=== PATIENT | female | born 1960 | race African-American/Black ===

== ENCOUNTER 2017-03-16 07:08 | Inpatient (IN) | payer OTHER ==
--- NOTE | 2017-03-15 11:06 | HP ---
Satellite [facility] - Chief Complaint Chief Complaint: right hip pain - Past Medical History Allergies/Adverse Reactions: Allergies Allergy/AdvReac Type Severity Reaction Status Date / Time No Known Allergies Allergy Verified 03/12/17 13:58 - Current Medications Current Medications: Home Medications Medication Instructions Recorded Acetaminophen [Tylenol -] 1,000 mg PO TID 03/12/17 Albuterol Sulfate Inhaler - 1 - 2 inh PO BID PRN 03/12/17 [Ventolin Hfa Inhaler -] Aripiprazole [Abilify -] 7 mg PO HS 03/12/17 Gabapentin 100 mg PO BID 03/12/17 Metoprolol Tartrate 50 mg PO HS 03/12/17 Omeprazole 40 mg PO HS 03/12/17 Saline Sensitive Eyes 1 drop OU BID 03/12/17 Simvastatin [Zocor -] 20 mg PO HS 03/12/17 Satellite Physical Exam - Physical Examination General Appearance: Well Nourished, Well Developed, Alert & Oriented x3 ENT: Clear Lung: Normal air movement Heart: Regular rate & rhythm Extremities: Other (right hip- + ttp, decr rom with IR and ER, nvi xrays show severe hip djd) Neurological: Intact, Alert, Oriented Satellite Impression/Plan - Impression/Plan Impression: right hip djd Operative Procedure: right corey thr Date to be Performed: 03/16/17
[~2017-03-16 07:08] MED LIST: VANCOMYCIN 1 GRAM (PRE-DOCKED) 1,000 MG/250 ML BAG IVPB ONE; ceFAZolin SODIUM 1 GM VIAL IVPB ONE
[2017-03-16] MEDS ORDERED: VANCOMYCIN 1,000 MG VIAL (RESTRICTED TO ID ONLY) ONE (07:36)
[2017-03-16] MEDS ORDERED: ceFAZolin SODIUM 1 GM VIAL ONE (07:36)
[2017-03-16] MEDS ORDERED: GABAPENTIN 300 MG CAPSULE (FP) PO ONE (07:39)
[2017-03-16] MEDS ORDERED: TRANEXAMIC ACID 1000 MG/10 ML VIAL IVPUSH ONE (07:39)
[2017-03-16] MEDS ORDERED: CELECOXIB 200 MG CAPSULE PO ONE (07:39)
[2017-03-16] MEDS ORDERED: oxyCODONE HCL 10 MG SUSTAINED ACTING TABLET PO ONE (07:39)
[2017-03-16] MEDS ORDERED: CEFAZOLIN 2 GM in DEXTROSE 5%-WATER - 50 ML IVPB ONE (07:39)
[2017-03-16 08:34] VITALS: BMI 34.5
[2017-03-16] MEDS ORDERED: ceFAZolin SODIUM 1 GM VIAL IVPB ONE ×2 (10:02→10:50)
[2017-03-16] MEDS ORDERED: VANCOMYCIN 1 GRAM (PRE-DOCKED) 1,000 MG/250 ML BAG IVPB ONE (10:59)
[2017-03-16] MEDS ORDERED: MAGNESIUM HYDROX 2400MG/30ML ORAL SUSPENSION 30 ML CUP PO PRN (11:23)
[2017-03-16] MEDS ORDERED: ONDANSETRON 4 MG/2 ML VIAL IVPUSH PRN ×2 (11:23→12:28)
[2017-03-16] MEDS ORDERED: MAG HYDROX/AL HYDROX/SIMETH 30 ML UNIT-DOSE CUP PO PRN (11:23)
[2017-03-16] MEDS ORDERED: ALBUTEROL SO4 18 GM HFA INHALER IH PRN (11:24)
--- NOTE | 2017-03-16 11:27 | OP ---
Operative Note - Note: Operative Date: 03/16/17 (arm[place]) Pre-Operative Diagnosis: right hip djd Operation: right corey thr Post-Operative Diagnosis: Same as Pre-op Surgeon: Waqar Madison Check Processing Clerk: Cirilo Arnold Anesthesiologist/[employer] SALESPERSON: Levar Molina Anesthesia: Spinal, Local Specimens Removed: femoral head Estimated Blood Loss (mls): 150 Operative Report Dictated: Yes
[2017-03-16] MEDS ORDERED: LACTATED RINGERS SOLUTION 1,000 ML IV SCH (11:30)
[2017-03-16] MEDS ORDERED: PROMETHAZINE HCL 25 MG/1 ML VIAL IVPUSH PRN (12:28)
[2017-03-16] MEDS ORDERED: oxyCODONE HCL 5 MG TABLET PO PRN (12:28)
[2017-03-16] MEDS: oxyCODONE HCL 5 MG TABLET PO PRN ×2 (14:00→18:18)
[2017-03-16 17:55] LABS: HIV 1 & 2 AB NEGATIVE; HIV 1 AGp24 NEGATIVE
[2017-03-16] MEDS: CEFAZOLIN 2 GM/D5W 50 ML IVPB SCH (18:18)
[2017-03-16] MEDS ORDERED: PT OWN MED DRAWER 7, Y5N ONE (21:01)
[2017-03-16] MEDS ORDERED: DULoxetine HCL 60 MG CAPSULE.DR PO SCH (22:00)
[2017-03-16] MEDS ORDERED: PATIENT'S OWN MEDICATION (NON-FORMULARY) (Simvastatin 20 MG) PO SCH (22:00)
[2017-03-16] MEDS ORDERED: ARIPiprazole 5 MG TABLET (FP) PO SCH (22:00)
[2017-03-16] MEDS: DULoxetine HCL 30 MG CAPSULE.DR (FP) PO SCH (22:11)
[2017-03-16] MEDS: ATORVASTATIN CA 10 MG TABLET (FP) PO SCH (22:12)
[2017-03-16] MEDS: METOPROLOL TARTRATE 50 MG TABLET (FP) PO SCH (22:12)
[2017-03-16] MEDS: SENNOSIDES/DOCUSATE COMBO (SENNA PLUS) TABLET (UD) PO SCH (22:12)
[2017-03-16] MEDS: ARIPIPRAZOLE 5 MG, ARIPIPRAZOLE 2 MG PO SCH (22:13)
[2017-03-17] MEDS: oxyCODONE HCL 5 MG TABLET PO PRN ×6 (01:23→21:13)
[2017-03-17] MEDS: CEFAZOLIN 2 GM/D5W 50 ML IVPB SCH (01:24)
[2017-03-17] MEDS: ASPIRIN 325 MG TABLET PO SCH (08:19)
[2017-03-17 08:22] LABS: MCH 31.2 pg (25.7-33.7); MCHC 33.6 g/dl (32.0-36.0); MEAN CELL VOLUME 92.9 fl (80-96); MEAN PLT VOLUME 9.7 fl (7.5-11.1); PLATELET COUNT 265 K/MM3 (134-434); RDW 13.4 % (11.6-15.6); WHITE BLOOD COUNT 15.4 K/mm3 (4.0-10.8)
--- NOTE | 2017-03-17 08:36 | PN ---
Progress Note (short form) - Note Progress Note: Ortho Pt seen and examined s/p right corey thr pod #1 Selected Entries 03/17/17 04:58 Temperature 98.0 F Pulse Rate 82 Respiratory 18 Rate Blood Pressure 128/64 Laboratory Tests 03/17/17 07:00 WBC 15.4 H Hgb 12.5 Hct 37.1 Plt Count 265 dressing c/d/i,calf soft ,nt nvi a/p PT hip precautions dvt ppx pain control d/c home tomorrow if stable
[2017-03-17] MEDS: PANTOPRAZOLE 40 MG TABLET (FP) PO SCH (09:22)
[2017-03-17] MEDS: SENNOSIDES/DOCUSATE COMBO (SENNA PLUS) TABLET (UD) PO SCH ×2 (09:22→21:10)
[2017-03-17] MEDS: MULTIVITAMINS (DAILY MVI) TABLET (FP) PO SCH (09:22)
--- NOTE | 2017-03-17 09:35 | PN ---
Progress Note (short form) - Note Progress Note: 56F POD1 s/p R THR under spinal anesthetic with PNB. Pt doing well, states that pain is well controlled. Pt does not report any anesthetic complications. Sensory and motor function intact in bilateral lower extremities. Will add gabapentin as per pt request.
[2017-03-17] MEDS: GABAPENTIN 300 MG CAPSULE (FP) PO SCH ×2 (10:00→21:10)
[2017-03-17] MEDS ORDERED: PT OWN MED DRAWER 7, Y5N ONE (21:03)
[2017-03-17] MEDS: ARIPIPRAZOLE 5 MG, ARIPIPRAZOLE 2 MG PO SCH (21:08)
[2017-03-17] MEDS: METOPROLOL TARTRATE 50 MG TABLET (FP) PO SCH (21:10)
[2017-03-17] MEDS: ATORVASTATIN CA 10 MG TABLET (FP) PO SCH (21:10)
[2017-03-17] MEDS: DULoxetine HCL 30 MG CAPSULE.DR (FP) PO SCH (21:10)
[2017-03-18] MEDS: oxyCODONE HCL 5 MG TABLET PO PRN ×2 (05:11→11:14)
[2017-03-18 06:15] VITALS: BP 104/60; PULSE 92; TEMP 99.9
[2017-03-18 07:58] LABS: MCH 30.9 pg (25.7-33.7); MCHC 33.6 g/dl (32.0-36.0); MEAN PLT VOLUME 9.2 fl (7.5-11.1); PLATELET COUNT 226 K/MM3 (134-434); RDW 13.6 % (11.6-15.6); WHITE BLOOD COUNT 12.8 K/mm3 (4.0-10.8)
--- NOTE | 2017-03-18 08:23 | PN ---
Progress Note (short form) - Note Progress Note: Ortho Pt seen and examined s/p right corey thr pod #2 Selected Entries 03/18/17 06:00 Temperature 99.9 F H Pulse Rate 92 H Respiratory 18 Rate Blood Pressure 104/60 Laboratory Tests 03/18/17 07:00 WBC 12.8 H Hgb 12.1 Hct 36.1 Plt Count 226 dressing c/d/i,calf soft ,nt nvi a/p PT hip precautions dvt ppx pain control d/c home today f/u in 1 week
--- NOTE | 2017-03-18 08:24 | DS ---
Physical Examination Vital Signs: Vital Signs Temperature 99.9 F H 03/18/17 06:00 Pulse Rate 92 H 03/18/17 06:00 Respiratory Rate 18 03/18/17 06:00 Blood Pressure 104/60 03/18/17 06:00 O2 Sat by Pulse Oximetry (%) 94 L 03/18/17 06:00 Labs: CBC, BMP 03/18/17 07:00 Discharge Summary Reason For Visit: OSTEOARTHRITIS Procedures: Principal: s/p right corey thr Hospital Course: admitted for elective right corey thr, uneventful post-op, stable for d/c Condition: Good - Instructions Diet, Activity, Other Instructions: Post-op Instructions-Total Hip Replacement Call the office for a follow-up appointment in 1 week - [phone] Aspirin 325mg daily for 6 weeks. Pain medication was sent into your pharmacy. Apply Graduated Compression Stockings (TEDs) to both lower extremities- remove daily for hygiene ONLY Apply Sequential Compression Device (SCDs) to both Lower extremities remove for PT and hygiene ONLY Apply cold packs to affected area for 15 minutes every 2 hours. Physical Therapist will come to your home for the first 5 days. You will be set up with outpatient PT at your first post-operative visit. Patient may ambulate as tolerated-encourage self care (at least every 2-3 hours while awake) with walker or cane Maintain Aquacel (waterproof) dressing to operative wound (will be removed by surgeon at first office visit) Shower with Aquacel dressing in place-if Aquacel integrity compromised, remove and apply dry sterile dressing and notify Orthopedist. DO NOT SHOWER unless Orthopedists approves without Aquacel dressing CONTACT THE OFFICE FOR ANY CHANGE IN YOUR CONDITION (for example-fever greater than 102 degrees,excessive bleeding from operative site, purulent drainage, severe swelling or pain) GO TO THE EMERGENCY ROOM IF THERE IS A MEDICAL EMERGENCY Hip Precautions: * Keep a rolled towel under affected heel while in bed or chair (to keep knee in extension) * Dependent upon approach: * Posterior - do not cross legs; do not sit on low chairs or toilets. * If you have any questions, please do not hesitate to call the office - [phone]. Referrals: Waqar Madison MD [Staff Physician] - Disposition: VNS/HOME HEALTH CARE - Home Medications Comprehensive Discharge Medication List: Ambulatory Orders Albuterol Sulfate Inhaler - [Ventolin HFA Inhaler -] 1 - 2 inh PO BID PRN Aripiprazole [Abilify -] 7 mg PO HS 03/12/17 Gabapentin 100 mg PO BID 03/12/17 Metoprolol Tartrate 50 mg PO HS 03/12/17 Omeprazole 40 mg PO HS 03/12/17 Saline Sensitive Eyes 1 drop OU BID 03/12/17 Simvastatin [Zocor -] 20 mg PO HS 03/12/17 Duloxetine HCl [Cymbalta] 60 mg PO HS 03/16/17 Oxycodone HCl/Acetaminophen [Percocet 5-325 mg Tablet] 1 - 2 tab PO Q6H #50 tab MDD 8 03/16/17
[2017-03-18] MEDS: ASPIRIN 325 MG TABLET PO SCH (08:25)
[2017-03-18] MEDS: GABAPENTIN 300 MG CAPSULE (FP) PO SCH (09:19)
[2017-03-18] MEDS: PANTOPRAZOLE 40 MG TABLET (FP) PO SCH (09:19)
[2017-03-18] MEDS: MULTIVITAMINS (DAILY MVI) TABLET (FP) PO SCH (09:20)
[2017-03-18] MEDS: SENNOSIDES/DOCUSATE COMBO (SENNA PLUS) TABLET (UD) PO SCH (09:20)
--- NOTE | 2017-03-18 13:49 | PATH ---
Surgical Pathology Report Patient Name: ESPINOZA GONZALEZ Med. Rec. #: [id number] /Age/Gender: 1960 (Age: 56) / F Account: [id number] Location: [facility] MED-SURG Taken: 03/16/2017 Received: 03/16/2017 Reported: 03/18/2017 Physicians: Waqar Madison M.D. Specimen(s) Received FEMORAL HEAD RIGHT Clinical History Osteoarthritis right hip Final Diagnosis BONE, RIGHT FEMORAL HEAD, REPLACEMENT: DEGENERATIVE JOINT DISEASE. Electronically Signed Gilson Quintero M.D. Gross Description Received in formalin, labeled "femoral head right," is a 4.3 x 4.3 x 3.8 cm. femoral head with a 1 cm in length portion of femoral neck attached. The margin of resection is smooth. There is a 2.0 cm in greatest dimension area of eburnation present. The remaining articular surface is bar[place]-yellow and focally granular. The underlying trabecular bone is yellow and hard. A financial foundations representative section is submitted in one cassette, following decalcification. 03/17/2017 [facility]03/17/2017
--- NOTE | 2017-03-19 12:19 | SPEC ---
DATE OF OPERATION: 03/16/2017 PREOPERATIVE DIAGNOSIS: Degenerative joint disease right hip. POSTOPERATIVE DIAGNOSIS: Degenerative joint disease right hip. PROCEDURE PERFORMED: Right total hip replacement with robotic-assisted navigation (MAKOplasty). SURGICAL ATTENDING: Waqar Madison MD FITNESS DIRECTOR: RAMONA Coffey ANESTHESIA: Regional and spinal. CLOSURE: An Accolade II number 4 stem with a 50 titanium press-fit acetabulum, with a standard MDM head. Number 1 Vicryl for fascia, 0 and 2-0 subcutaneous, 3-0 V-Loc for skin with skin glue, 4-0 undyed Vicryl for pin sites. ESTIMATED BLOOD LOSS: Approximately 100 mL. COMPLICATIONS: None. CONDITION: To the recovery room in stable condition. DESCRIPTION OF PROCEDURE: The patient was taken to the operating room on March 16, 2017. General and regional anesthesia was administered by the anesthesiologist. IV Kefzol and TXA were administered prophylactically prior to the case. The patient was placed in the lateral decubitus position will all prominences well-padded. The right hip area was prepped and draped in the usual sterile fashion. Using 3 small stab incisions over the iliac crest, 3 threaded pins were drilled in power fashion through the 2 tables of the crest. These pins were fastened and the navigation array for the Fili navigation system. Next, a 12 to 15-cm curved longitudinal incision over the posterolateral aspect of the greater trochanter was incised. Hemostasis was achieved with Bovie cautery. Sharp dissection was carried down to level of the fascia. The fascia was opened the entire length of the incision, spreading the fibers of the gluteus raymundo in the direction of origin. A Charnley retractor was placed in this layer. Care was taken not to impale the sciatic nerve. The short external rotators were detached off the insertion of the greater trochanter and peeled off the capsule. A posterior capsulotomy was then performed. A check point was malleted into the greater trochanter and a point on the inferior pole of the patella was obtained as well. These 2 points were used to assess the preoperative offset and limb lengths of the hip. The hip was then dislocated. The femoral neck was then osteotomized down to the appropriate level as directed by the navigation device. Anterior and posterior retractors were placed, exposing the acetabulum. A circumferential labral excision was performed. A check point was malleted into the acetabulum as well. Multiple sites inside the acetabulum and around the rim were utilized to register the acetabulum with the navigation device. An excellent registration of less than 0.5 mm was obtained. The hip was then reamed with a 49 reamer down to the appropriate depth, with the appropriate orientation and version as assessed on our preoperative plan for this patient. The reamer was removed and the acetabulum was inspected to have good bleeding surfaces throughout. The real acetabular cup was then malleted down into place, with the holes in the appropriate position, until an excellent fixation was obtained. No screws were necessary. The navigation device ensured appropriate orientation and version, with the depth as predetermined. The appropriate liner was then clipped into place. Attention was directed to the femur. The proximal femur was prepared by use a box chisel, a canal finder and serial broaches until the broach achieved excellent rigidity in the proximal femur with the appropriate version being applied. A calcar planer was used to smooth off the calcar flush with the trial components. A trial reduction with the appropriate head was done, and the hip was reduced. The hip was taken through a range of motion from full extension with external rotation to marked flexion, and was stable at 90 degrees of flexion. It was stable to marked abduction and internal rotation, with a positive hang test and negative telescoping. Limb lengths were ascertained visually as well as with the navigation device to be within the targeted range for this patient. The trial component was removed. The real component was then malleted into place. The head was cold welded to the trunnion, and the hip was reduced. Range of motion, stability and limb lengths were as described in the trial component. Then the hip was pulse antibiotic irrigated. Vancomycin powder was placed in the hip joint. The capsule was closed. The fascia was then closed as well using number 1 Vicryl interrupted suture, 0 and 2-0 subcutaneous, and 3-0 V-Loc for the skin. 4-0 undyed Vicryl was used to close the pin sites after the pins were removed. All check points were also removed. Sterile Aquacel dressing was applied. The patient was awakened from anesthesia and transferred into the supine position. Bilateral SCDs and an abduction pillow were placed. X-rays revealed excellent position of the components. The patient was transferred to the recovery room in stable condition, with no complications. Estimated blood loss was less than 100 mL. Aminta [id number]
== END 2017-03-18 12:30 | disposition home health service (06) | DRG 470 ==
LOC: FM/S 07:08
PROVIDERS: ADMIT Orthopaedic Surgery; ATTEND Orthopaedic Surgery
PROC: 8E0Y0CZ Robotic Assisted Procedure of Lower Extremity, Open Approach (ICD-10-PCS; 2017-03-16)
PROC: 0SR90JA Replacement of Right Hip Joint with Synthetic Substitute, Uncemented, Open Approach (ICD-10-PCS; principal; 2017-03-16 09:30)
DX: M16.11 Unilateral primary osteoarthritis, right hip (principal); I10 Essential (primary) hypertension; E78.5 Hyperlipidemia, unspecified
CPT/HCPCS: 36415; 73502-TC-RT; 85027; 86803; 87389; 88304-TC; 88311-TC; 94010; 94760; 97116-GP; 97162-GP